=== PATIENT | female | born 1940 | race Caucasian/White ===

== ENCOUNTER 2016-11-07 15:50 | Emergency (ER) | payer OTHER, MEDICARE ==
[~2016-11-07 15:50] MED LIST: ASPCH81X PO; CALC-20 PO; NSNN50 NAE; PANT1INJ2 PO; TYLOTC500 PO
[2016-11-07 15:53] VITALS: TEMP 36.3; Ht 167.6 cm
[2016-11-07] MEDS ORDERED: MOME6000 NAE (16:02)
--- NOTE | 2016-11-07 16:40 | EMERGENCY ROOM VISIT NOTE ---
ED Visit Note First contact with patient: 16:03 Staff note: I have reviewed the Patients chart and have discussed this case with my PA. I generally agree with the ED note and findings.
[2016-11-07 16:58] VITALS: BP 160/95; PULSE 84; O2SAT 94
--- NOTE | 2016-11-07 23:52 | EMERGENCY ROOM VISIT NOTE ---
ED Visit Note First contact with patient: 16:03 Chief Complaint: My nose is bleeding. History of Present Illness: Ms. Gomez is a 76-year-old white female who ambulates into the ED accompanied by her complaining of a left nostril epistaxis. Patient reports approximately 15 minutes ago she was at rest reading a book and had an acute onset of bleeding from the left nostril. She reports initially she felt like her nose was dripping in the back of her throat and when she leaned forward there was blood dripping from the left nostril. She reports since that time the bleeding has been constant. She has not identified any aggravating or alleviating factors related to her nosebleed. She has not taken any medications for her nosebleed prior to arrival at the hospital. She reports shortly after her nosebleed started she felt slightly lightheaded and since the nosebleed she has been feeling anxious. Additionally she does report over the last month she been experiencing posterior headaches that typically presents shortly after waking and then self resolved during the day. She does report she did not have a headache today. She denies fevers, chills, sweats, recent facial or head trauma, recent upper respiratory tract symptoms, cough, wheezing, shortness of breath, chest pain/ discomfort, abdominal pain, nausea, vomiting, previous ENT surgeries, previous nosebleeds, blood thinners/NSAID use. Review of Systems: As noted above in history of present illness. Past Medical History: (1) Acute stomach ulcer (2) Benign hypertension (3) Heart disease (4) Hyperlipidemia (5) Mitral valve prolapse Current Medications: Medications Dose Route/Sig Max Daily Dose Days Date Category Mometasone Furoate (Mometasone Furoate (Nasal)) 50 Mcg/Act Spr 1 [place] VONNIE DAILY PRN 11/07/16 Reported Tylenol (Acetaminophen) 500 Mg Tab 1,000 Mg PO DAILY PRN 11/15/14 Reported Protonix (Pantoprazole Sodium) 40 Mg Inj 40 Mg PO Q2D PRN 12/15/12 Reported Allergies to Medications: Ciprofloxacin, codeine, morphine, sorbitan, propofol, pravastatin, simvastatin, nebivolol, ertapenem, ezetimibe. Social History: Patient is not employed; she feels safe at home; she denies tobacco use. Physical Examination: Vital Signs: Date Time Temp Pulse Resp B/P Pulse Ox O2 Delivery O2 Flow Rate FiO2 11/07/16 16:58 84 18 160/95 94 11/07/16 15:53 36.3 114 26 169/116 96 Room Air GENERAL: 76-year-old female in mild distress due to symptoms, nontoxic-appearing , afebrile and hemodynamically stable. Patient is slightly anxious. NEUROLOGICAL: Awake, alert and oriented to person, place and time. Answering questions appropriately and following commands. Normal gait. Good hand eye coordination. No focal motor or sensory deficits. SKIN: Warm, dry and pink. No soft tissue eruptions or trauma noted. HEENT: Atraumatic and normocephalic. PERRLA. Sclera white and conjunctiva pink. No drainage from naris; left nostril is patent and there is no active bleeding. Oral cavity moist and pink. No blood in the posterior pharyngeal area. Pharynx is nonerythematous or edematous. Speech normal. No lymphadenopathy. Trachea midline. No jugular venous distention. THORAX: Lungs sounds are clear to auscultation and equal bilaterally with symmetrical chest wall. ED Course: Patient is assessed as noted above. A nasal clamp was placed on the patient's nostrils in triage. After my initial assessment where there was no active bleeding there was a small amount of blood noted in the left nostril. I did have her blow her nose vigorously at least 3 times. On reexamination the blood was completely removed from the left nostril and there was no additional bleeding. Patient's case was reviewed with Dr. Ireland; in apparently assessed the patient we agreed on diagnostic approach, treatment, disposition and plan. Patient was educated about tonight's findings and instructed on her treatment plan; she verbalizes understanding and agreement with this plan. Clinical Impression: Left nostril epistaxis. Disposition: Patient discharged home in stable condition accompanied by her ; prior to departure she was reassessed and subjectively reported she was pain-free and had no sensations of nasal bleeding in the throat. Plan: Patient was encouraged to continue her medications as prescribed. Patient was encouraged to consider adding moisture at home to her air with the use a vaporizer or humidifier. Patient is encouraged to follow-up with her family physician for recheck in 2-4 days. Patient was encouraged return to the ED for recurrent nasal bleeding, any new abnormal bleeding, easy bruising or any new/concerning symptoms.
[2017-06-12] MEDS ORDERED: DSWCR TOP (09:05)
[2017-06-12] MEDS ORDERED: PTDOPS OP (09:05)
[2017-06-12] MEDS ORDERED: AZEL0.057 (09:05)
[2017-06-12] MEDS ORDERED: EPP3/2 IM (09:05)
== END 2016-11-07 16:59 | disposition home or self-care (01) ==
LOC: C.EDB 15:51 → C.EDD 16:59
DX: R04.0 Epistaxis (principal); I10 Essential (primary) hypertension; E78.5 Hyperlipidemia, unspecified; I34.1 Nonrheumatic mitral (valve) prolapse; I51.9 Heart disease, unspecified; Z87.19 Personal history of other diseases of the digestive system; Z88.2 Allergy status to sulfonamides; Z88.5 Allergy status to narcotic agent; Z88.8 Allergy status to other drugs, medicaments and biological substances

== ENCOUNTER → 2016-11-21 | Outpatient (CLI) | payer OTHER, MEDICARE ==
[~2016-11-21] MED LIST changes: -ASPCH81X PO; +AZEL0.057; -CALC-20 PO; +CEPH500C PO; +DSWCR TOP; +EPP3/2 IM; +METR-163 PO; +MOME6000 NAE; +NEBI2.5T2 PO; -NSNN50 NAE; +PTDOPS OP
--- NOTE | 2016-11-21 11:26 | DIAGNOSTIC IMAGING REPORT ---
DOPPLER ULTRASOUND OF THE RENAL ARTERIES CLINICAL HISTORY: ELEVATED BP,ABNORMAL CREATININE,HYPERTENSION COMPARISON STUDY: CT of the abdomen and pelvis November 15, 2014. FINDINGS: The right kidney measures 9.7 cm in maximal dimension and the left measures 9.8 cm. There is no hydronephrosis. There is mild renal cortical thinning. The peak systolic velocity within the abdominal aorta was 110 cm/s. No elevated velocities were identified within either renal artery although this exam was mildly complex by suboptimal penetration. The peak systolic velocity within the right renal artery was 101 cm/s. The peak systolic velocity within the left renal artery was 86 cm/s. Segmental waveforms within each kidney were normal. Both renal veins were patent. IMPRESSION: No sonographic evidence of renal artery stenosis although this study is mildly compromised by suboptimal penetration. Electronically signed by: Ronald Aparicio M.D. 11/21/2016 11:24 AM Dictated Date/Time: 11/21/2016 11:18 AM
--- NOTE | 2016-11-21 11:29 | DIAGNOSTIC IMAGING REPORT ---
EXAMINATION: RENAL ULTRASOUND CLINICAL HISTORY: Renal insufficiency. Hypertension. COMPARISON STUDY: CT scan dated November 15, 2014 FINDINGS: The right kidney measures 9.7 cm. The left kidney measures 9.8 cm. There is no evidence of hydronephrosis. There are no renal masses. No bladder abnormalities are visualized. Bilateral ureteral jets were visualized. IMPRESSION : Normal renal ultrasound. Electronically signed by: Anoop Friedman M.D. 11/21/2016 11:27 AM Dictated Date/Time: 11/21/2016 11:27 AM
== END | disposition home or self-care (01) ==
LOC: C.ULTR 10:12
PROVIDERS: ATTEND Family Medicine
DX: R79.9 Abnormal finding of blood chemistry, unspecified (principal); I10 Essential (primary) hypertension

== ENCOUNTER 2016-12-05 19:15 | Emergency (ER) | payer OTHER, MEDICARE ==
[~2016-12-05] VITALS: Ht 167.6 cm; Wt 76.0 kg
[~2016-12-05 19:15] MED LIST changes: -AZEL0.057; -CEPH500C PO; -DSWCR TOP; -EPP3/2 IM; -METR-163 PO; -NEBI2.5T2 PO; -PTDOPS OP
[2016-12-05 19:24] VITALS: TEMP 36.6; Ht 167.6 cm; Wt 76.0 kg
[2016-12-05 21:45] VITALS: O2SAT 98
[2016-12-05 22:25] LABS: HEMATOCRIT 43.8 % (37-47); MEAN CELL VOLUME 94.8 fL (80-100); MEAN CORPUSCULAR HEMOGLOBIN 32.5 pg (25-34); MEAN CORPUSCULAR HGB CONC 34.2 g/dl (32-36); MEAN PLATELET VOLUME 10.3 fL (7.4-10.4); PLATELET COUNT 335 K/uL (130-400); RED BLOOD COUNT 4.62 M/uL (4.2-5.4); WHITE BLOOD COUNT 6.78 K/uL (4.8-10.8)
--- NOTE | 2016-12-05 22:26 | EMERGENCY ROOM VISIT NOTE ---
History Report prepared by Vielka: Ruben Luis Under the Supervision of: Dr. Michael Mccoy M.D. First contact with patient: 21:58 Chief Complaint: CHEST PAIN Stated Complaint: CHEST PAIN/TIGHTNESS, LT EYE VISION PROBLEMS, HTN Nursing Triage Summary: Pt reports at approx 1815 she experienced chest tightness and SOB, as well as vision changes. Pt reports increased BP at this time. Symptoms lasted approx 45 minutes. History of Present Illness The patient is a 76 year old female who presents to the Emergency Room with complaints of sudden spikes in her blood pressure prior to arrival. The patient notes that she has had a few episodes of these hypertensive spikes for no reason while she is resting. Tonight, she notes she was watching television when she started seeing spots in her vision and then got a sudden headache in the back of her head. She took her blood pressure and it was a little high. The patient notes that she was recently in the ED for a bloody nose when her blood pressure also spiked. She notes that the symptoms she experienced with the nose bleed were similar to the symptoms she experienced watching television tonight. She presented to her PCP who sent her for an ultrasound of her kidneys to rule them out for the sudden, random spikes in her blood pressure. The patient also complains of frequent urination that is worsened when she experiences these symptoms. She has an appointment with a neurologist next month. Source of History: patient Onset: prior to arrival Position: other (global ) Timing: other (sudden episodes) Associated Symptoms: + headache Note: Other associated symptoms: seeing spots in her vision Review of Systems See HPI for pertinent positives & negatives. A total of 10 systems reviewed and were otherwise negative. Past Medical & Surgical Medical Problems: (1) Acute stomach ulcer (2) Benign hypertension (3) Heart disease (4) Hyperlipidemia (5) Mitral valve prolapse Family History Diabetes mellitus FH: gallbladder disease FH: heart disease Hypertension Social History Smoking Status: Never Smoker Alcohol Use: none Marital Status: Housing Status: lives with family Occupation Status: retired Current/Historical Medications Scheduled Cephalexin Monohydrate (Keflex), 500 MG PO TID Scheduled PRN Acetaminophen (Tylenol), 1,000 MG PO DAILY PRN for Pain Mometasone Furoate (Nasal) (Mometasone Furoate), 1 SPRAY VONNIE DAILY PRN for PRN Pantoprazole Sodium (Protonix), 40 MG PO Q2D PRN for REFLUX Allergies Coded Allergies: CI Pigment Blue 63 (Verified Allergy, Intermediate, RED ITCHING FACE, CHEST TIGHTNESS, 12/05/16) Ertapenem (Verified Allergy, Intermediate, RED ITCHING FACE, CHEST TIGHTNESS, 12/05/16) Nebivolol (Verified Allergy, Intermediate, RED ITCHING FACE, CHEST TIGHTNESS, 12/05/16) Sorbitan (Verified Allergy, Intermediate, RED ITCHING FACE, CHEST TIGHTNESS, 12/05/16) Yellow Dye (Verified Allergy, Intermediate, RED ITCHING FACE, CHEST TIGHTNESS, 12/05/16) Codeine (Verified Allergy, Mild, ITCHY, 12/05/16) Ezetimibe (Verified Allergy, Unknown, SOMETHING TO HEART, 12/05/16) Morphine (Verified Allergy, Unknown, VOMITING, 12/05/16) Pravastatin (Verified Allergy, Unknown, "something to heart"??, 12/05/16) Propofol (Verified Allergy, Unknown, ANAFALACTIC, 12/05/16) Simvastatin (Verified Allergy, Unknown, SOMETHING TO HEART, 12/05/16) Ciprofloxacin (Verified Adverse Reaction, Unknown, local irritation followed by chest tightness, 12/05/16) unclear if truly an early allergic reaction or had local irritation from IV then anxiety due to local reaction superimposed on the history of having had anaphylaxis with propofol Physical Exam Vital Signs Date Time Temp Pulse Resp B/P Pulse Ox O2 Delivery O2 Flow Rate FiO2 12/06/16 00:13 65 14 171/77 97 12/05/16 23:33 69 20 97 12/05/16 23:28 162/81 12/05/16 23:03 68 14 97 12/05/16 22:58 173/85 12/05/16 22:45 71 14 99 12/05/16 22:30 71 16 176/89 98 Room Air 12/05/16 22:28 176/89 12/05/16 22:15 76 18 98 12/05/16 21:58 167/83 12/05/16 21:45 74 23 96 12/05/16 21:45 98 Room Air 12/05/16 21:38 66 12/05/16 21:36 99 Room Air 12/05/16 21:36 69 18 194/74 98 Room Air 12/05/16 21:33 194/74 12/05/16 19:24 36.6 85 18 158/89 97 Room Air Physical Exam GENERAL: Patient is mildly anxious appearing. HEENT: No acute trauma, normocephalic atraumatic, mucous membranes moist, no nasal congestion, no scleral icterus. NECK: No stridor, no adenopathy, no meningismus, trachea is midline. LUNGS: No dyspnea. Clear to auscultation and equal bilaterally. No wheeze, no rhonchi. HEART: Regular rate and rhythm. No murmurs, rubs, gallops appreciated. ABDOMEN: Soft, nontender, bowel sounds positive, no masses appreciated, no peritonitis. BACK: No midline tenderness, no CVA tenderness EXTREMITIES: Normal motion all extremities, no cyanosis, no edema. NEUROLOGIC: Alert and oriented, no acute motor or sensory deficits, no focal weakness, cranial nerves grossly intact. SKIN: No rash, no jaundice, no diaphoresis. Medical Decision & Procedures Laboratory Results 12/05/16 21:45 12/05/16 21:45 Test 12/05/16 21:45 12/05/16 22:25 Red Blood Count 4.62 M/uL (4.2-5.4) Mean Corpuscular Volume 94.8 fL (80-100) Mean Corpuscular Hemoglobin 32.5 pg (25-34) Mean Corpuscular Hemoglobin Concent 34.2 g/dl (32-36) RDW Standard Deviation 45.1 fL (36.4-46.3) RDW Coefficient of Variation 13.1 % (11.5-14.5) Mean Platelet Volume 10.3 fL (7.4-10.4) Anion Gap 9.0 mmol/L (3-11) Est Creatinine Clear Calc Drug Dose 50.9 ml/min Estimated GFR () 64.9 Estimated GFR (Non- 56.0 BUN/Creatinine Ratio 18.6 (10-20) Calcium Level 9.3 mg/dl (8.5-10.1) Troponin I < 0.015 ng/ml (0-0.045) Chemistry Specimen Hemolysis Urine Color YELLOW Urine Appearance CLOUDY (CLEAR) Urine pH 5.5 (4.5-7.5) Urine Specific [place] 1.026 (1.000-1.030) Urine Protein NEG (NEG) Urine Glucose (UA) NEG (NEG) Urine Ketones NEG (NEG) Urine Occult Blood TRACE (NEG) Urine Nitrite NEG (NEG) Urine Bilirubin NEG (NEG) Urine Urobilinogen NEG (NEG) Urine Leukocyte Esterase MODERATE (NEG) Urine WBC (Auto) >30 /hpf (0-5) Urine RBC (Auto) 0-4 /hpf (0-4) Urine Hyaline Casts (Auto) 10-30 /lpf (0-5) Urine Epithelial Cells (Auto) >30 /lpf (0-5) Urine Bacteria (Auto) 1+ (NEG) Laboratory results as reviewed by me. Medications Administered Medications (Trade) Dose Ordered Sig/Molly Route Start Time Stop Time Status Last Admin Dose Admin Cephalexin Monohydrate (Keflex Cap) 500 mg NOW ONCE PO 12/06/16 00:00 12/06/16 00:03 DC 12/06/16 00:09 500 MG ECG Indication: other Rate (beats per minute): 85 Rhythm: normal sinus Findings: no acute ischemic change, no ectopy ED Course 2215: The patient was evaluated in room C12. A complete history and physical exam was performed. 0000: Ordered Keflex Cap 500 mg PO. 0023: Reevaluated the patient. Discussed results and discharge instructions: She verbalized understanding and agreement. The patient is ready for discharge. Medical Decision Differential: Benign Hypertension, Hypertensive Urgency/Emergency, Cardiovascular Pathology, Endocrine, Metabolic/Electrolyte, Renal Disease, Endorgan Damage, amongst other pathologies entertained. 76 yr old female arrives for evaluation of HTN over last few weeks. Already following with PCP who had US kidneys done. Also with periodic left fleeting posterior headache when BP elevated thus PCP set up Neuro appointment already. No recent labs thus felt reasonable doing them. Questionable UTI, but gien periodic frequency and new HTN seems reasonable treating. Previously tolerated Keflex. No neuro deficits nor current headache thus I feel CT or MRI not emergently indicated. No TTP over christianity nor other evidence of PMR/arteritis. No evidence end-organ damage. Stable and in no distress. Discussed follow up with PCP to discuss starting BP meds. Impression Primary Impression: Hypertension Additional Impression: Bacteria in urine Scribe Attestation The scribe's documentation has been prepared under my direction and personally reviewed by me in its entirety. I confirm that the note above accurately reflects all work, treatment, procedures, and medical decision making performed by me. Departure Information Dispostion Home / Self-Care Prescriptions Cephalexin Monohydrate (Keflex) 500 Mg Cap 500 MG PO TID for 7 Days, #21 CAP Prov: Michael Mccoy M.D. 12/06/16 Referrals Bonifacio Lees MD (PCP) Forms HOME CARE DOCUMENTATION FORM, IMPORTANT VISIT INFORMATION Patient Instructions Hypertension Dc, My [facility] Additional Instructions Please follow up with your primary provider in the next week for repeat blood pressure check and Urinalysis. Problem Qualifiers Primary Impression: Hypertension Hypertension type: essential hypertension Qualified Codes: I10 - Essential ( primary) hypertension
[2016-12-05 22:48] LABS: BLOOD UREA NITROGEN 18 mg/dl (7-18); BUN/CREATININE RATIO 18.6 (10-20); CALCIUM 9.3 mg/dl (8.5-10.1); CARBON DIOXIDE 25 mmol/L (21-32); CHLORIDE 108 mmol/L (98-107); CREATININE 0.98 mg/dl (0.60-1.20); GLUCOSE 95 mg/dl (70-99); SODIUM 142 mmol/L (136-145)
[2016-12-05 23:05] LABS: URINE APPEARANCE CLOUDY (CLEAR); URINE BILIRUBIN NEG (NEG); URINE COLOR YELLOW; URINE EPITHELIAL CELL AUTO >30 /lpf (0-5); URINE NITRITE NEG (NEG); URINE PH 5.5 (4.5-7.5); URINE SPECIFIC GRAVITY 1.026 (1.000-1.030); UROBILINOGEN NEG (NEG); ZZUR CULT IF INDIC CLEAN CATCH NO
[2016-12-05 23:11] LABS: MANUAL MICROSCOPIC REQUIRED? NO; REVIEW REQ? NO
[2016-12-06] MEDS ORDERED: CEPHALEXIN MONOHYDRATE 250 MG CAP PO ONE
[2016-12-06] MEDS ORDERED: CEPH500C PO (00:03)
[2016-12-06 00:13] VITALS: BP 171/77; PULSE 65; O2SAT 97
[2017-06-12] MEDS ORDERED: DSWCR TOP (09:05)
[2017-06-12] MEDS ORDERED: PTDOPS OP (09:05)
[2017-06-12] MEDS ORDERED: EPP3/2 IM (09:05)
[2017-06-12] MEDS ORDERED: AZEL0.057 (09:05)
== END 2016-12-06 00:13 | disposition home or self-care (01) ==
LOC: C.EDB 19:17 → C.EDC 12-06 00:13
DX: I10 Essential (primary) hypertension (principal); R82.71 Bacteriuria; E78.5 Hyperlipidemia, unspecified; I34.1 Nonrheumatic mitral (valve) prolapse; Z87.11 Personal history of peptic ulcer disease; Z88.2 Allergy status to sulfonamides; Z88.5 Allergy status to narcotic agent; Z88.8 Allergy status to other drugs, medicaments and biological substances; Z83.3 Family history of diabetes mellitus; Z83.79 Family history of other diseases of the digestive system; Z82.49 Family history of ischemic heart disease and other diseases of the circulatory system

== ENCOUNTER → 2016-12-28 | Outpatient (CLI) | payer OTHER, MEDICARE ==
[~2016-12-28] MED LIST changes: +AZEL0.057; +DSWCR TOP; +EPP3/2 IM; +METR-163 PO; +NEBI2.5T2 PO; +PTDOPS OP
--- NOTE | 2016-12-28 15:46 | DIAGNOSTIC IMAGING REPORT ---
MRI OF THE BRAIN WITHOUT CONTRAST CLINICAL HISTORY: New onset headache after age 50. COMPARISON STUDY: MRI of the brain August 29, 2013 TECHNIQUE: Utilizing a 1.5 Shayy magnet and dedicated coil, multiplanar, multiecho imaging of the brain was performed without IV contrast. FINDINGS: There are no areas of restricted diffusion. No acute intracranial hemorrhage, midline shift or mass effect is present. Ventricular system is normal. Basilar cisterns are patent. No extra-axial collections are present. Flow-voids for the major intracranial vessels are present. A few small subcortical white matter T2 hyperintense foci are unchanged since MRI of August 29, 2013. No new areas of signal abnormality are present. The appearance of the brain is unchanged. Calvarial signal is maintained. Orbits and sinuses are unremarkable. IMPRESSION: 1. No acute intracranial findings. 2. No change in appearance of the brain since exam of August 29, 2013. Electronically signed by: Ronald Aparicoi M.D. 12/28/2016 3:45 PM Dictated Date/Time: 12/28/2016 3:41 PM
== END | disposition home or self-care (01) ==
LOC: C.MRIBC 15:03
PROVIDERS: ATTEND Psychiatry & Neurology Neurology
DX: R51 Headache (principal)

== ENCOUNTER → 2016-12-29 | Outpatient (CLI) | payer OTHER, MEDICARE ==
--- NOTE | 2016-12-29 12:21 | EEG Procedure Note ---
EEG Procedure Note Date of Service Dec 29, 2016. Start / End Times Start Time: 9:18 AM End Time: 10:21 AM Referring Physician Yajaira Fisher History This is a 76-year-old female with new onset headaches. EEG for further evaluation of possible seizure etiology. Home Medication List Scheduled PRN Acetaminophen (Tylenol), 1,000 MG PO DAILY PRN for Pain Mometasone Furoate (Nasal) (Mometasone Furoate), 1 [place] VONNIE DAILY PRN for PRN Pantoprazole Sodium (Protonix), 40 MG PO Q2D PRN for REFLUX Description This is a 21 electrode EEG with a single channel dedicated to limited EKG. The electrodes were placed in accordance with the International 10-20 system. At the start of the recording the patient was in an awake state. Background was well organized and composed of symmetric mixed alpha and beta frequencies. There was a symmetric well-formed moderate amplitude 10-11 Hz posterior dominant rhythm that was reactive to eye opening and closure. Hyperventilation was not done. Intermittent photic stimulation at various frequencies produced no abnormalities. Drowsiness was indicated by loss of muscle artifact and slowing of the background rhythm. There was no sleep transients. Interpretation This is a normal one hour extended EEG. There was no electrographic seizures or epileptiform discharges. Clinical Correlation A normal EEG does not rule out epilepsy if there is a strong clinical suspicion.
== END | disposition home or self-care (01) ==
LOC: C.NEUR 08:55
PROVIDERS: ATTEND Psychiatry & Neurology Neurology
DX: R51 Headache (principal)

== ENCOUNTER 2017-01-29 21:42 | Emergency (ER) | payer OTHER, MEDICARE ==
[~2017-01-29] VITALS: Ht 168.9 cm; Wt 70.0 kg
[~2017-01-29 21:42] MED LIST changes: -AZEL0.057; -DSWCR TOP; -EPP3/2 IM; -METR-163 PO; -NEBI2.5T2 PO; -PTDOPS OP
[2017-01-29 21:51] VITALS: TEMP 36.4; Ht 168.9 cm; Wt 70.0 kg
[2017-01-29] MEDS ORDERED: SODIUM CHLORIDE 0.9% 500ML 500 ML IV STA (22:03)
[2017-01-29] MEDS ORDERED: ONDANSETRON INJ 2 MG/ML 2 ML VIAL IV STA (22:03)
[2017-01-29] MEDS ORDERED: NEBI2.5T2 PO (22:28)
[2017-01-29 22:29] LABS: BASO % 0.3 %; BASO ABS # 0.02 K/uL (0-0.2); COMPLETE YES; EOS % 1.2 %; HEMATOCRIT 45.6 % (37-47); IG% 0.2 %; LYMPH % 30.8 %; LYMPH ABS # 2.05 K/uL (1.2-3.4); MEAN CELL VOLUME 92.1 fL (80-100); MEAN CORPUSCULAR HEMOGLOBIN 32.5 pg (25-34); MEAN CORPUSCULAR HGB CONC 35.3 g/dl (32-36); MEAN PLATELET VOLUME 10.1 fL (7.4-10.4); MONO % 14.1 %; NEUT % 53.4 %; PLATELET COUNT 295 K/uL (130-400); RED BLOOD COUNT 4.95 M/uL (4.2-5.4); WHITE BLOOD COUNT 6.65 K/uL (4.8-10.8)
[2017-01-29 23:23] LABS: ALT/SGPT 31 U/L (12-78); AST/SGOT 30 U/L (15-37); BLOOD UREA NITROGEN 21 mg/dl (7-18); BUN/CREATININE RATIO 17.5 (10-20); CALCIUM 9.1 mg/dl (8.5-10.1); CARBON DIOXIDE 24 mmol/L (21-32); CHLORIDE 105 mmol/L (98-107); GLUCOSE 104 mg/dl (70-99); POTASSIUM 3.9 mmol/L (3.5-5.1); SODIUM 142 mmol/L (136-145)
[2017-01-29 23:24] LABS: ALKALINE PHOSPHATASE 91 U/L (45-117)
[2017-01-29] MEDS ORDERED: OPTIRAY 320 IV PRN (23:30)
[2017-01-30] MEDS ORDERED: METRONIDAZOLE 250 MG TAB PO STA ×2 (00:21→01:05)
[2017-01-30] MEDS ORDERED: METR-163 PO (01:01)
--- NOTE | 2017-01-30 01:06 | EMERGENCY ROOM VISIT NOTE ---
History Report prepared by Vielka: Wendy Goodwin Under the Supervision of: Dr. Dayo Banegas M.D. First contact with patient: 21:57 Chief Complaint: DIARRHEA Stated Complaint: DIARRHEA FOR 3 DAYS, SHAKY FEVER FAINT History of Present Illness The patient is a 76 year old female who presents to the Emergency Room with complaints of intermittent diarrhea for the past 3 days. Her stool is watery and yellow. She is also experiencing lower abdominal pain and cramping. She rates her pain as a 5/10 in severity. The patient states that she feels weak and nauseated. She thinks that she is dehydrated. She has been drinking fluids, but states that as soon as she eats or drinks anything she immediately has to go to the bathroom. The patient denies fevers, vomiting, melena, and hematochezia. She has not recently been outside of the country. She denies any recent antibiotic use or any personal history of c-diff. She has not taken any medications for her symptoms. No sick contacts at home. Source of History: patient Onset: 3 days ago Position: abdomen Symptom Intensity: 5/10 Quality: other (watery and yellow) Timing: intermittent Modifying Factors (Worsening): eating, drinking Associated Symptoms: + abdominal pain, + nausea, + weakness, No fevers, No hematochezia, No melena, No vomiting Note: Pt also feels dizzy and dehydrated. Review of Systems See HPI for pertinent positives & negatives. A total of 10 systems reviewed and were otherwise negative. Past Medical & Surgical Medical Problems: (1) Acute stomach ulcer (2) Benign hypertension (3) Heart disease (4) Hyperlipidemia (5) Mitral valve prolapse Family History Diabetes mellitus FH: gallbladder disease FH: heart disease Hypertension Social History Smoking Status: Never Smoker Alcohol Use: none Marital Status: Housing Status: lives with family Occupation Status: retired Current/Historical Medications Scheduled Metronidazole (Flagyl), 500 MG PO TID Nebivolol Hcl (Bystolic), 1.25 MG PO NOON Scheduled PRN Acetaminophen (Tylenol), 1,000 MG PO DAILY PRN for Pain Mometasone Furoate (Nasal) (Mometasone Furoate), 1 SPRAY VONNIE DAILY PRN for PRN Pantoprazole Sodium (Protonix), 40 MG PO Q2D PRN for REFLUX Allergies Coded Allergies: CI Pigment Blue 63 (Verified Allergy, Intermediate, RED ITCHING FACE, CHEST TIGHTNESS, 01/29/17) Ertapenem (Verified Allergy, Intermediate, RED ITCHING FACE, CHEST TIGHTNESS, 01/29/17) Nebivolol (Verified Allergy, Intermediate, RED ITCHING FACE, CHEST TIGHTNESS, 01/29/17) Sorbitan (Verified Allergy, Intermediate, RED ITCHING FACE, CHEST TIGHTNESS, 01/29/17) Yellow Dye (Verified Allergy, Intermediate, RED ITCHING FACE, CHEST TIGHTNESS, 01/29/17) Codeine (Verified Allergy, Mild, ITCHY, 01/29/17) Dairy (Unverified Allergy, Unknown, TESTED/HEADACHE, 01/29/17) Ezetimibe (Verified Allergy, Unknown, SOMETHING TO HEART, 01/29/17) Food (Unverified Allergy, Unknown, HEADACHE, CAN'T MIX DIFFERENT FOODS, ) PT IS NOT SURE WHICH FOOD, Milk (Unverified Allergy, Unknown, TESTED/HEADACHE, 01/29/17) Morphine (Verified Allergy, Unknown, VOMITING, 01/29/17) Pravastatin (Verified Allergy, Unknown, "something to heart"??, 01/29/17) Propofol (Verified Allergy, Unknown, ANAFALACTIC, 01/29/17) Simvastatin (Verified Allergy, Unknown, SOMETHING TO HEART, 01/29/17) Ciprofloxacin (Verified Adverse Reaction, Unknown, local irritation followed by chest tightness, 01/29/17) unclear if truly an early allergic reaction or had local irritation from IV then anxiety due to local reaction superimposed on the history of having had anaphylaxis with propofol Physical Exam Vital Signs Date Time Temp Pulse Resp B/P Pulse Ox O2 Delivery O2 Flow Rate FiO2 01/30/17 00:18 81 16 159/73 98 Room Air 01/29/17 22:46 79 18 98 01/29/17 22:32 75 01/29/17 21:51 36.4 92 21 129/82 96 Room Air Physical Exam Constitutional: Vital signs reviewed. Eyes: Pupils are equal round reactive to light. Conjunctiva are noninjected. ENT: Pharynx is clear without erythema or exudate. Mucous membranes are dry. Neck supple without meningeal signs. Respiratory: Clear to auscultation bilaterally. Breath sounds are equal bilaterally. Cardiovascular: Regular rate and rhythm. No rubs or gallops. GI: Soft, mild left lower quadrant tenderness. Bowel sounds are present. Musculoskeletal: No peripheral edema. No lower extremity tenderness. Integumentary: No cyanosis. Neurological: The patient is awake and alert. No focal deficits. Psychiatric: Normal affect. Medical Decision & Procedures ER Provider Diagnostic Interpretation: CT of the abdomen and pelvis: No free air or free fluid. Evaluation of bowel limited by lack of oral contrast and under distention, but there is no evidence of bowel obstruction. Fluid within the colon, compatible with history of diarrhea. No evidence of colitis. 2.4 cm ovoid fluid density structure in right abdomen anteriorly is unchanged from prior CT, likely benign. Small sliding hiatal hernia, containing ingested material. Visualized small portion of the appendix is unremarkable. Fat-containing umbilical hernia. Minimal atherosclerotic calcifications. Laboratory Results 01/29/17 22:14 Red Blood Count 4.95, Mean Corpuscular Volume 92.1, Mean Corpuscular Hemoglobin 32.5, Mean Corpuscular Hemoglobin Concent 35.3, Mean Platelet Volume 10.1, Neutrophils (%) (Auto) 53.4, Lymphocytes (%) (Auto) 30.8, Monocytes (%) (Auto) 14.1, Eosinophils (%) (Auto) 1.2, Basophils (%) (Auto) 0.3, Neutrophils # (Auto ) 3.55, Lymphocytes # (Auto) 2.05, Monocytes # (Auto) 0.94, Eosinophils # (Auto ) 0.08, Basophils # (Auto) 0.02 01/29/17 22:14 Test 01/29/17 22:14 01/29/17 22:45 White Blood Count 6.65 K/uL (4.8-10.8) Red Blood Count 4.95 M/uL (4.2-5.4) Hemoglobin 16.1 g/dL (12.0-16.0) Hematocrit 45.6 % (37-47) Mean Corpuscular Volume 92.1 fL (80-100) Mean Corpuscular Hemoglobin 32.5 pg (25-34) Mean Corpuscular Hemoglobin Concent 35.3 g/dl (32-36) Platelet Count 295 K/uL (130-400) Mean Platelet Volume 10.1 fL (7.4-10.4) Neutrophils (%) (Auto) 53.4 % Lymphocytes (%) (Auto) 30.8 % Monocytes (%) (Auto) 14.1 % Eosinophils (%) (Auto) 1.2 % Basophils (%) (Auto) 0.3 % Neutrophils # (Auto) 3.55 K/uL (1.4-6.5) Lymphocytes # (Auto) 2.05 K/uL (1.2-3.4) Monocytes # (Auto) 0.94 K/uL (0.11-0.59) Eosinophils # (Auto) 0.08 K/uL (0-0.5) Basophils # (Auto) 0.02 K/uL (0-0.2) RDW Standard Deviation 44.6 fL (36.4-46.3) RDW Coefficient of Variation 13.2 % (11.5-14.5) Immature Granulocyte % (Auto) 0.2 % Immature Granulocyte # (Auto) 0.01 K/uL (0.00-0.02) Anion Gap 13.0 mmol/L (3-11) Est Creatinine Clear Calc Drug Dose 38.1 ml/min Estimated GFR () 50.8 Estimated GFR (Non- 43.9 BUN/Creatinine Ratio 17.5 (10-20) Calcium Level 9.1 mg/dl (8.5-10.1) Total Bilirubin 0.4 mg/dl (0.2-1) Direct Bilirubin < 0.1 mg/dl (0-0.2) Aspartate Amino Transf (AST/SGOT) 30 U/L (15-37) Alanine Aminotransferase (ALT/SGPT) 31 U/L (12-78) Alkaline Phosphatase 91 U/L (45-117) Total Protein 7.3 gm/dl (6.4-8.2) Albumin 3.8 gm/dl (3.4-5.0) Lipase 352 U/L (73-393) Chemistry Specimen Hemolysis Laboratory results as reviewed by me. Medications Administered Medications (Trade) Dose Ordered Sig/Molly Route Start Time Stop Time Status Last Admin Dose Admin Sodium Chloride (Nss 500ml) 500 ml @ 999 mls/hr Q31M STAT IV 01/29/17 22:03 01/29/17 22:33 DC 01/29/17 22:03 999 MLS/HR Metronidazole (Flagyl Tab) 500 mg NOW STAT PO 01/30/17 00:21 01/30/17 00:27 DC 01/30/17 00:51 500 MG ED Course 2156: The patient was evaluated in room C8. A complete history and physical exam was performed. 2202: NSS 500 ml @ 999 mls/hr IV, Zofran 4 mg IV 2337: I updated the patient on her results. She is waiting to go for her CT scan. Medical Decision This is a 76-year-old female presents with diarrhea. Differential diagnosis includes food borne illness, enteritis, colitis, C. difficile infection, dehydration, diverticulitis. I did perform a limited focused review of portions of the patient's old chart on the electronic medical record. The patient has had no recent pertinent visits to this hospital. I did evaluate the patient as noted above. IV access was established. I did treat the patient with IV normal saline and Zofran IV. I did order and review the patient's blood work as noted in the electronic medical record. Her white blood cell count is not elevated. Electrolytes are unremarkable. I did order a CT of the abdomen and pelvis. I did review the images myself as well as the radiology report as described above. There is no evidence of colitis. Stool cultures were ordered and testing for C. difficile was positive. I did treat the patient with Flagyl. I did discuss the test results with her. She was advised follow with her doctor discharged with a 14 day course of Flagyl. Impression Primary Impression: Clostridium difficile infection Additional Impression: Dehydration Scribe Attestation The scribe's documentation has been prepared under my direct and personally reviewed by me in its entirety. I confirm that the note above accurately reflects all work, treatment, procedures, and medical decision making performed by me. Departure Information Dispostion Home / Self-Care Prescriptions Metronidazole (Flagyl) 500 Mg Tab 500 MG PO TID for 14 Days, #41 TAB Prov: Dayo Banegas M.D. 01/30/17 Referrals Bonifacio Lees MD (PCP) Patient Instructions My [facility] Problem Qualifiers
[2017-01-30 01:18] VITALS: BP 164/83; PULSE 79; O2SAT 100
--- NOTE | 2017-01-30 06:47 | DIAGNOSTIC IMAGING REPORT ---
ABDOMEN AND PELVIS CT WITH IV CONTRAST CT DOSE: 417.54 mGy.cm HISTORY: Pain lower abd pain and diarrhea TECHNIQUE: Multiaxial CT images of the abdomen and pelvis were performed following the use of intravenous contrast. COMPARISON STUDY: 11/15/2014 FINDINGS: Small hiatal hernia. Liver spleen and pancreas are uniform. Gallbladder is negative for distention. Peritoneal-based cystic nodule anterior aspect of the right upper abdomen unchanged prior study. This presumably is benign finding. Given the lack of interval change. Bowel pattern overall is nonobstructive. Kidneys negative for hydronephrosis. Uterus is anteflexed. IMPRESSION: No acute process in the abdomen or pelvis. Electronically signed by: Ramon Navarro M.D. 01/30/2017 6:45 AM Dictated Date/Time: 01/30/2017 6:42 AM
[2017-06-12] MEDS ORDERED: DSWCR TOP (09:05)
[2017-06-12] MEDS ORDERED: PTDOPS OP (09:05)
[2017-06-12] MEDS ORDERED: AZEL0.057 (09:05)
[2017-06-12] MEDS ORDERED: EPP3/2 IM (09:05)
== END 2017-01-30 01:25 | disposition home or self-care (01) ==
LOC: C.EDB 21:43 → C.EDC 01-30 01:25
DX: B96.7 Clostridium perfringens [C. perfringens] as the cause of diseases classified elsewhere (principal); E86.0 Dehydration; I10 Essential (primary) hypertension; I51.9 Heart disease, unspecified; E78.5 Hyperlipidemia, unspecified; Z82.49 Family history of ischemic heart disease and other diseases of the circulatory system; Z83.3 Family history of diabetes mellitus

== ENCOUNTER → 2017-04-25 | Outpatient (CLI) | payer OTHER, MEDICARE ==
[~2017-04-25] MED LIST changes: +AZEL0.057; +DSWCR TOP; +EPP3/2 IM; +NEBI2.5T2 PO; +PTDOPS OP
--- NOTE | 2017-04-30 15:33 | EEG Procedure Note ---
EEG Procedure Note Date of Service Apr 25, 2017. Start / End Times Start Time: 04/25/17 @ 10:11am End Time: 04/27/17 @ 8:20am Referring Physician Yajaira Fisher DO History 76 year old female with dizzy spells. 48hr ambulatory EEG for spell capture and to evaluate spells for possible seizure etiology. Home Medication List Scheduled Nebivolol Hcl (Bystolic), 1.25 MG PO NOON Scheduled PRN Acetaminophen (Tylenol), 1,000 MG PO DAILY PRN for Pain Mometasone Furoate (Nasal) (Mometasone Furoate), 1 SPRAY VONNIE DAILY PRN for PRN Pantoprazole Sodium (Protonix), 40 MG PO Q2D PRN for REFLUX Description This is a 21 electrode ambulatory EEG with a single channel dedicated to limited EKG. The electrodes were placed in accordance with the International 10- 20 system. At the start of the recording the patient was in an awake state. The background was well organized and composed of symmetric mixed alpha and beta frequencies. There was a well formed symmetric moderate amplitude posterior dominant rhythm of 9-10Hz that was reactive to eye opening and closure. Sleep was indicated by vertex waves, symmetric sleep spindles and slow wave sleep. Patient journal was returned and reviewed. There was no clinical events reported. Patient did report waking with a typical headache the morning of with no EEG correlation. Interpretation This is a normal 48hr ambulatory EEG There was no electrographic seizures or epileptiform discharges. Clinical Correlation A normal EEG does not rule out epilepsy if there is a strong clinical suspicion or for spell types not captured.
== END | disposition home or self-care (01) ==
LOC: C.NEUR 09:25
PROVIDERS: ATTEND Psychiatry & Neurology Neurology
DX: R42 Dizziness and giddiness (principal)

== ENCOUNTER → 2017-06-12 | Day surgery (SDC) | payer OTHER, MEDICARE ==
[~2017-06-12] VITALS: Ht 167.6 cm; Wt 76.0 kg
[2017-06-12 12:32] VITALS: BP 164/69; PULSE 69; O2SAT 96; Ht 167.6 cm; Wt 76.0 kg
--- NOTE | 2017-06-12 14:02 | [facility] Operative Report ---
Operative Report Operative Date Jun 12, 2017. Pre-Operative Diagnosis Labile blood pressure Post-Operative Diagnosis same Procedure(s) Performed Head up tilt test Surgeon Dr. Carvalho Laborer Beam House Surgeon(s) none Estimated Blood Loss none Findings Normal tilt test Anesthesia none Complication(s) None Disposition home Description of Procedure After obtaining informed consent for the procedure, the patient was brought to the laboratory having nothing by mouth after midnight. The patient was identified in the laboratory, placed supine on the tilt table and remained supine for 15 minutes. The head of the tilt table was then raised to a 70 head up position where it remained for 30 minutes. The head of the bed was then placed supine and monitoring continued for an additional 15 minutes. During the procedure continuous pulse oximetry and electrocardiography was performed, noninvasive blood pressure monitoring was performed at five-minute intervals. Findings: The heart rate and blood pressure did not fall during the study. Pulse oximetry was unchanged throughout the study. There was no significant change in blood pressure or heart rate when the patient was placed supine. Details of the blood pressure, heart rate and pulse oximetry data are presented on the procedure data sheet. Conclusions: Normal tilt test with no evidence of orthostasis or vasovagal physiology I attest to the content of the Intraoperative Record and any orders documented therein. Any exceptions are noted below.
== END | disposition home or self-care (01) ==
LOC: C.CATH 11:52
PROVIDERS: ATTEND Psychiatry & Neurology Neurology
DX: I99.8 Other disorder of circulatory system (principal)

== ENCOUNTER → 2017-08-07 | Outpatient (CLI) | payer OTHER, MEDICARE ==
--- NOTE | 2017-08-07 12:32 | DIAGNOSTIC IMAGING REPORT ---
RIGHT KNEE 2 VIEWS CLINICAL HISTORY: RIGHT KNEE PAIN COMPARISON: None. DISCUSSION: No fractures or dislocations are visualized. There are no erosive or destructive changes. There are mild osteoarthritic changes. IMPRESSION: Mild osteoarthritic change. No fractures identified. Electronically signed by: Anoop Frideman M.D. 08/07/2017 12:31 PM Dictated Date/Time: 08/07/2017 12:30 PM
== END | disposition home or self-care (01) ==
LOC: C.RADBC 11:54
PROVIDERS: ATTEND Family Medicine
DX: M25.561 Pain in right knee (principal)

== ENCOUNTER → 2017-09-14 | Outpatient (CLI) | payer OTHER, MEDICARE | END | disposition home or self-care (01) | LOC: C.RDSM 09:00 | PROVIDERS: ATTEND Orthopaedic Surgery | DX: M25.561 Pain in right knee (principal); M25.562 Pain in left knee ==

== ENCOUNTER → 2017-09-20 | Outpatient (CLI) | payer OTHER, MEDICARE ==
--- NOTE | 2017-09-20 10:14 | DIAGNOSTIC IMAGING REPORT ---
R LOWER EXT JOINT WITHOUT CLINICAL HISTORY: RT KNEE MINISCUS TEAR pain. TECHNIQUE: MRI multi axial acquisition COMPARISON STUDY: None FINDINGS: Signal characteristics the osseous structures are in general unremarkable. Small degenerative subchondral cysts are identified at the lateral aspect lateral tibial plateau measuring 4 and 2 mm respectively. Medial and lateral collateral ligaments are intact. There is a partial sprain lateral collateral ligament. Anterior and posterior cruciate ligaments are intact. There is no evidence for a popliteal cyst. There is a small joint effusion. There are several small synechiae of the suprapatellar bursa. Evaluation of menisci demonstrates a medial meniscus to be generally unremarkable in overall configuration. There is moderate degenerative thinning of the articular services the medial compartment. Lateral compartment shows moderate meniscal fibrillation of the articular services of the lateral meniscus. Moderate internal matrix deterioration on a degenerative basis. There does not appear to be an acute meniscal tear. IMPRESSION: 1. Small joint effusion. 2. Moderate degenerative change of the medial and lateral joint compartments. 3. No evidence for an acute meniscal tear. 4. Moderate degenerative substance change lateral meniscus with no acute tear. 5. Several synechiae of the suprapatellar bursa. 6. Moderate sprain lateral collateral ligament. The above report was generated using voice recognition software. It may contain grammatical, syntax or spelling errors. Electronically signed by: Ramon Navarro M.D. 09/20/2017 10:13 AM Dictated Date/Time: 09/20/2017 10:06 AM
== END | disposition home or self-care (01) ==
LOC: C.MRI 09:11
PROVIDERS: ATTEND Orthopaedic Surgery
DX: S83.206A Unspecified tear of unspecified meniscus, current injury, right knee, initial encounter (principal); S83.421A Sprain of lateral collateral ligament of right knee, initial encounter; X58.XXXA Exposure to other specified factors, initial encounter; M17.11 Unilateral primary osteoarthritis, right knee

== ENCOUNTER → 2017-09-21 | Outpatient (CLI) | payer OTHER, MEDICARE | END | disposition home or self-care (01) | LOC: C.RDSM 15:31 | PROVIDERS: ATTEND Orthopaedic Surgery | DX: M54.16 Radiculopathy, lumbar region (principal) ==

== ENCOUNTER 2017-11-03 10:43 | Emergency (ER) | payer OTHER, MEDICARE ==
[~2017-11-03] VITALS: Ht 168.9 cm; Wt 66.9 kg
[2017-11-03 10:46] VITALS: TEMP 36.4; Ht 168.9 cm; Wt 66.9 kg
[2017-11-03] MEDS ORDERED: LIDOCAINE/EPINEPH/TETRACAINE 1 EA SYR ONE (11:20)
[2017-11-03] MEDS ORDERED: OXYMETAZOLINE HCL 0.05% NA SPR 15 ML BTL ONE ×2 (11:20→11:30)
[2017-11-03] MEDS ORDERED: SILVER NITR/POTASSIUM NITRATE APPLICATOR EXT STA (11:30)
[2017-11-03] MEDS ORDERED: LIDOCAINE/EPINEPH/TETRACAINE 1 EA SYR EXT STA (11:30)
[2017-11-03] MEDS ORDERED: SILVER NITR/POTASSIUM NITRATE APPLICATOR ONE (11:33)
--- NOTE | 2017-11-03 11:48 | EMERGENCY ROOM VISIT NOTE ---
ED Visit Note First contact with patient: 11:03 CHIEF COMPLAINT: Nosebleed HISTORY OF PRESENT ILLNESS: This is a 77-year-old female who presents to the emergency department after she developed sudden onset of a nosebleed about one hour ago. The bleeding has not stopped with pressure. The bleeding has been coming out of the left nostril, as well as draining in the back of her throat. There was no trauma to the nose and no recent upper respiratory infection. The patient is not on Coumadin or other anticoagulants. She reports a history of nosebleeds previously that were similar to this, she feels they are associated with her blood pressure being high. She does take blood pressure medicine and states she took this this morning. She denies any fevers or chills, headache, neck pain, chest pain, difficulty breathing, cough, sore throat, nausea. REVIEW OF SYSTEMS: A complete 10 point review of systems was reviewed with the patient with pertinent positives and negatives as per history of present illness. All else were negative. PMH: The patient is healthy; history of hypertension. SOCIAL HISTORY: Patient lives at home. She denies tobacco use. PHYSICAL EXAM: Vital Signs: Reviewed Nurse's notes. CONSTITUTIONAL: The patient is sitting upright holding the nose and is slightly anxious. The patient is alert, oriented, coherent, and cooperative. There is no tachypnea or dyspnea. HEENT: Normocephalic, atraumatic. Pupils equal, round and reactive to light, EOMI. TMs normal. There is bloody drainage noted within the left naris, with a small erosion noted on the anterior septum, but appears to be the source of the bleeding. The right naris is patent and clear. Pharynx is not erythematous or swollen, there is a small amount of bloody drainage noted in the posterior oropharynx, no active draining blood noted. Moist mucous membranes. NECK: Supple, full active range of motion without discomfort. No cervical adenopathy. RESPIRATORY: Clear to auscultation bilaterally with no wheezing, crackles, rhonchi or stridor. Equal expansion bilaterally. CARDIOVASCULAR: Regular rate and rhythm with no murmurs, rubs or gallops. Normal peripheral perfusion. No edema. GASTROINTESTINAL: Soft, nontender, nondistended. No palpable masses or HSM. Bowel sounds present in all quadrants. MUSCULOSKELETAL: Full range of motion of all joints without discomfort. INTEGUMENTARY: No rash or other significant dermatologic conditions noted. NEUROLOGIC: Alert and oriented X 4 with normal affect. Cranial nerves II-XII grossly intact. No focal neurologic deficits noted. Normal strength and sensation in all 4 extremities. Normal speech. EMERGENCY DEPARTMENT COURSE: I examined the patient. Differential diagnosis includes anterior versus posterior epistaxis, nasal trauma, nasal foreign body, among others. The patient had nose clips placed in triage by nursing. Patient reports the bleeding in the back of her throat has stopped after the clamps were placed. On my inspection, there appears to be an eroded area on the anterior septum within the left naris, with mild active bleeding noted and appears to be the source of the nosebleed. I obtained verbal consent from the patient to perform the procedure. Afrin nasal spray and LET gel were placed in the left nostril and clamps were again applied for 30 minutes. On reassessment , the bleeding is now stopped. Utilizing silver nitrate sticks, cautery was performed over the eroded tissue with the bleeding was coming from, with good hemostasis. The patient tolerated the procedure well with no known complications. I discussed management and follow-up with the patient, as well as return precautions should her symptoms return or worsen, she verbalized understanding. The patient was discharged home in stable condition and ambulatory. Medication Reconciliation: I attest that I have personally reviewed the patient' s current medication list. Blood pressure screening: The patient was found to have an elevated blood pressure and was referred to their primary doctor for recheck and further treatment. I discussed the patient with Dr. Dudley, who also examined the patient and agrees my assessment and plan. Problem List Medical Problems: (1) Acute stomach ulcer Status: Resolved (2) Benign hypertension Status: Chronic (3) Heart disease Status: Chronic (4) Hyperlipidemia Status: Chronic (5) Mitral valve prolapse Status: Chronic Current/Historical Medications Scheduled Nebivolol Hcl (Bystolic), 2.5 MG PO NOON Scheduled PRN Acetaminophen (Tylenol), 1,000 MG PO DAILY PRN for Pain Allergies Coded Allergies: CI Pigment Blue 63 (Verified Allergy, Intermediate, RED ITCHING FACE, CHEST TIGHTNESS, 01/29/17) Ertapenem (Verified Allergy, Intermediate, RED ITCHING FACE, CHEST TIGHTNESS, 01/29/17) Nebivolol (Verified Allergy, Intermediate, RED ITCHING FACE, CHEST TIGHTNESS, 01/29/17) Sorbitan (Verified Allergy, Intermediate, RED ITCHING FACE, CHEST TIGHTNESS, 01/29/17) Yellow Dye (Verified Allergy, Intermediate, RED ITCHING FACE, CHEST TIGHTNESS, 01/29/17) Codeine (Verified Allergy, Mild, ITCHY, 01/29/17) Dairy (Unverified Allergy, Unknown, TESTED/HEADACHE, 01/29/17) Ezetimibe (Verified Allergy, Unknown, SOMETHING TO HEART, 01/29/17) Food (Unverified Allergy, Unknown, HEADACHE, CAN'T MIX DIFFERENT FOODS, ) PT IS NOT SURE WHICH FOOD, Milk (Unverified Allergy, Unknown, TESTED/HEADACHE, 01/29/17) Morphine (Verified Allergy, Unknown, VOMITING, 01/29/17) Pravastatin (Verified Allergy, Unknown, "something to heart"??, 01/29/17) Propofol (Verified Allergy, Unknown, ANAFALACTIC, 01/29/17) Simvastatin (Verified Allergy, Unknown, SOMETHING TO HEART, 01/29/17) Ciprofloxacin (Verified Adverse Reaction, Unknown, local irritation followed by chest tightness, 01/29/17) unclear if truly an early allergic reaction or had local irritation from IV then anxiety due to local reaction superimposed on the history of having had anaphylaxis with propofol Vital Signs Date Time Temp Pulse Resp B/P (MAP) Pulse Ox O2 Delivery O2 Flow Rate FiO2 11/03/17 12:12 66 18 145/73 98 Room Air 11/03/17 10:46 36.4 86 18 166/97 98 Room Air Medications Administered Medications (Trade) Dose Ordered Sig/Molly Route Start Time Stop Time Status Last Admin Dose Admin Oxymetazoline HCl (Afrin 0.05% Nasal [place]) 75 sprays STK-MED ONCE .ROUTE 11/03/17 11:20 11/03/17 11:21 DC 11/03/17 11:22 75 SPRAYS Departure Information Impression Primary Impression: Epistaxis Dispostion Home / Self-Care Condition GOOD Referrals Bonifacio Lees MD (PCP) Patient Instructions ED Nosebleed, My [facility] Additional Instructions You have been treated in the Emergency Department today for your Nose Bleed ( Epistaxis). Do NOT blow your nose for the next few days. This can result in recurrence of your nosebleed. If bleeding does recur, apply immediate direct pressure to your nose or use the provided clamps. Set the timer for 20 MINUTES and do not remove pressure for that full 20 minutes. If you are unable to get the bleeding to stop after a full 20 minutes of holding pressure, you should return to the emergency department for evaluation. You should consider using a humidifier in your room next to your bed to help moisten the air and decrease instances of nosebleeds. You can use [id number] saline nasal sprays to help moisten the nasal mucosa and decrease instances of nosebleeds. As with any trip to the Emergency Department, you should follow-up with your Primary Care Provider from today's visit. Return to the emergency department if your symptoms persist despite treatment plan outlined above or if the following symptoms occur: uncontrollable nosebleed , dizziness, lightheadedness, passing out, severe headache, chest pain, shortness breath, or any other concerns.
--- NOTE | 2017-11-03 12:05 | EMERGENCY ROOM VISIT NOTE ---
ED Visit Note First contact with patient: 11:03 I have seen and examined this patient with Aliyah Romano and generally agree with the treatment plan as discussed. Problem List Medical Problems: (1) Acute stomach ulcer Status: Resolved (2) Benign hypertension Status: Chronic (3) Heart disease Status: Chronic (4) Hyperlipidemia Status: Chronic (5) Mitral valve prolapse Status: Chronic Current/Historical Medications Scheduled Nebivolol Hcl (Bystolic), 2.5 MG PO NOON Scheduled PRN Acetaminophen (Tylenol), 1,000 MG PO DAILY PRN for Pain Allergies Coded Allergies: CI Pigment Blue 63 (Verified Allergy, Intermediate, RED ITCHING FACE, CHEST TIGHTNESS, 01/29/17) Ertapenem (Verified Allergy, Intermediate, RED ITCHING FACE, CHEST TIGHTNESS, 01/29/17) Nebivolol (Verified Allergy, Intermediate, RED ITCHING FACE, CHEST TIGHTNESS, 01/29/17) Sorbitan (Verified Allergy, Intermediate, RED ITCHING FACE, CHEST TIGHTNESS, 01/29/17) Yellow Dye (Verified Allergy, Intermediate, RED ITCHING FACE, CHEST TIGHTNESS, 01/29/17) Codeine (Verified Allergy, Mild, ITCHY, 01/29/17) Dairy (Unverified Allergy, Unknown, TESTED/HEADACHE, 01/29/17) Ezetimibe (Verified Allergy, Unknown, SOMETHING TO HEART, 01/29/17) Food (Unverified Allergy, Unknown, HEADACHE, CAN'T MIX DIFFERENT FOODS, ) PT IS NOT SURE WHICH FOOD, Milk (Unverified Allergy, Unknown, TESTED/HEADACHE, 01/29/17) Morphine (Verified Allergy, Unknown, VOMITING, 01/29/17) Pravastatin (Verified Allergy, Unknown, "something to heart"??, 01/29/17) Propofol (Verified Allergy, Unknown, ANAFALACTIC, 01/29/17) Simvastatin (Verified Allergy, Unknown, SOMETHING TO HEART, 01/29/17) Ciprofloxacin (Verified Adverse Reaction, Unknown, local irritation followed by chest tightness, 01/29/17) unclear if truly an early allergic reaction or had local irritation from IV then anxiety due to local reaction superimposed on the history of having had anaphylaxis with propofol Vital Signs Date Time Temp Pulse Resp B/P (MAP) Pulse Ox O2 Delivery O2 Flow Rate FiO2 11/03/17 10:46 36.4 86 18 166/97 98 Room Air Medications Administered Medications (Trade) Dose Ordered Sig/Molly Route Start Time Stop Time Status Last Admin Dose Admin Oxymetazoline HCl (Afrin 0.05% Nasal [place]) 75 sprays STK-MED ONCE .ROUTE 11/03/17 11:20 11/03/17 11:21 DC 11/03/17 11:22 75 SPRAYS Departure Information Impression Primary Impression: Epistaxis Referrals Bonifacio Lees MD (PCP) Patient Instructions My [facility], ED Nosebleed Additional Instructions You have been treated in the Emergency Department today for your Nose Bleed ( Epistaxis). Do NOT blow your nose for the next few days. This can result in recurrence of your nosebleed. If bleeding does recur, apply immediate direct pressure to your nose or use the provided clamps. Set the timer for 20 MINUTES and do not remove pressure for that full 20 minutes. If you are unable to get the bleeding to stop after a full 20 minutes of holding pressure, you should return to the emergency department for evaluation. You should consider using a humidifier in your room next to your bed to help moisten the air and decrease instances of nosebleeds. You can use [id number] saline nasal sprays to help moisten the nasal mucosa and decrease instances of nosebleeds. As with any trip to the Emergency Department, you should follow-up with your Primary Care Provider from today's visit. Return to the emergency department if your symptoms persist despite treatment plan outlined above or if the following symptoms occur: uncontrollable nosebleed , dizziness, lightheadedness, passing out, severe headache, chest pain, shortness breath, or any other concerns.
[2017-11-03 12:12] VITALS: BP 145/73; PULSE 66; O2SAT 98
== END 2017-11-03 12:40 | disposition home or self-care (01) ==
LOC: C.EDB 10:45 → C.EDD 12:40
DX: R04.0 Epistaxis (principal); I10 Essential (primary) hypertension; I51.9 Heart disease, unspecified; E78.5 Hyperlipidemia, unspecified; I34.1 Nonrheumatic mitral (valve) prolapse

== ENCOUNTER → 2018-05-07 | Outpatient (CLI) | payer OTHER, MEDICARE ==
[~2018-05-07] MED LIST changes: -AZEL0.057; -DSWCR TOP; -EPP3/2 IM; -MOME6000 NAE; -PANT1INJ2 PO; -PTDOPS OP
[2018-05-07 12:17] LABS: BASO % 0.3 %; BASO ABS # 0.02 K/uL (0-0.2); EOS % 1.2 %; EOS ABS # 0.07 K/uL (0-0.5); HEMATOCRIT 44.3 % (37-47); HEMOGLOBIN 15.1 g/dL (12.0-16.0); IG# 0.01 K/uL (0.00-0.02); LYMPH % 29.5 %; LYMPH ABS # 1.73 K/uL (1.2-3.4); MEAN CELL VOLUME 93.3 fL (80-100); MEAN CORPUSCULAR HEMOGLOBIN 31.8 pg (25-34); MEAN CORPUSCULAR HGB CONC 34.1 g/dl (32-36); MEAN PLATELET VOLUME 10.5 fL (7.4-10.4); MONO ABS # 0.47 K/uL (0.11-0.59); NEUT % 60.8 %; NEUT ABS # 3.56 K/uL (1.4-6.5); PLATELET COUNT 328 K/uL (130-400); RED CELL DISTRIBUTION WIDTH CV 12.8 % (11.5-14.5); RED CELL DISTRIBUTION WIDTH SD 43.7 fL (36.4-46.3); WHITE BLOOD COUNT 5.86 K/uL (4.8-10.8)
[2018-05-07 12:30] LABS: HEMOGLOBIN A1C 5.9 % (4.5-5.6)
[2018-05-07 12:49] LABS: ALBUMIN 3.6 gm/dl (3.4-5.0); ALKALINE PHOSPHATASE 96 U/L (45-117); ALT/SGPT 23 U/L (12-78); AST/SGOT 16 U/L (15-37); BLOOD UREA NITROGEN 13 mg/dl (7-18); CALCIUM 8.7 mg/dl (8.5-10.1); CARBON DIOXIDE 23 mmol/L (21-32); CHOLESTEROL 191 mg/dl (0-200); CREATININE 0.89 mg/dl (0.60-1.20); GLUCOSE 105 mg/dl (70-99); LDL CHOLESTEROL CALCULATED 104 mg/dl; POTASSIUM 3.9 mmol/L (3.5-5.1); SODIUM 140 mmol/L (136-145); TOTAL PROTEIN 7.6 gm/dl (6.4-8.2)
== END | disposition home or self-care (01) ==
LOC: C.LAB1850 10:32
PROVIDERS: ATTEND Physician Assistant Medical
DX: I25.10 Atherosclerotic heart disease of native coronary artery without angina pectoris (principal); G90.9 Disorder of the autonomic nervous system, unspecified; E78.5 Hyperlipidemia, unspecified; M81.0 Age-related osteoporosis without current pathological fracture